=== PATIENT | female | born 1960 | race Caucasian/White ===

== ENCOUNTER 2017-02-16 17:45 | Emergency (ER) | payer OTHER, BC ==
[~2017-02-16] VITALS: Ht 167.6 cm; Wt 88.4 kg
[~2017-02-16 17:45] MED LIST: ARMOUR THYROID120 MG PO; BENAZEPRIL HCL40 MG PO; CELEXA40 MG PO; DAILY MULTIPLE1 EACH PO; HYDROCODON-ACE1 EAC7 PO; PULMICORT FLE180 MCG IH; VENTOLIN HFA18 GM IH; VITAMIN D31000 UNIT PO
[2017-02-16] MEDS ORDERED: AUGMENTIN875 MG PO (21:20)
[2017-02-16] MEDS ORDERED: NORCO 7.5/321 TABLET PO (21:20)
[2017-02-16] MEDS ORDERED: MOTRIN800 MG PO (21:20)
[2017-02-16 22:00] VITALS: BP 144/88
== END 2017-02-16 22:01 | disposition home or self-care (01) ==
LOC: RME 17:45 → EME 17:45 → RME 22:01
DX: S60.872A Other superficial bite of left wrist, initial encounter (principal); W54.0XXA Bitten by dog, initial encounter; Y99.0 Civilian activity done for income or pay; Z23 Encounter for immunization
CPT/HCPCS: 73130; 99281; 99284; J3010